=== PATIENT | female | born 1985 | race Two or more races ===

== ENCOUNTER → 2022-06-30 | Outpatient (CLI) | payer OTHER ==
[2022-06-30 11:15] LABS: Hepatitis B Surface Antibody Negative (Negative)
== END | disposition home or self-care (01) ==
LOC: LAB 08:54
PROVIDERS: ATTEND Family Medicine
DX: Z11.8 Encounter for screening for other infectious and parasitic diseases (principal)
CPT/HCPCS: 36415; 86703; 86706; 86803; 87340